=== PATIENT | female | born 1960 | race Caucasian/White ===

== ENCOUNTER 2017-01-03 12:31 | Emergency (ER) | payer OTHER ==
[~2017-01-03] VITALS: Ht 177.8 cm; Wt 97.7 kg
[~2017-01-03 12:31] MED LIST: VIC5 PO
[2017-01-03 12:40] VITALS: BP 151/89; PULSE 77; RESP 16; O2SAT 99
[2017-01-03] MEDS ORDERED: TdaP Vaccine 0.5 mL Inj IM ONE (12:50)
--- NOTE | 2017-01-03 13:03 | ED.REPORT ---
HPI-Extremity Problem Upper Date of Service Jan 03, 2017 ED Provider: Coleman Sainz DO Pt is a healthy 56 y/o female presenting to the ED due to left index finger laceration which occurred prior to arrival. The patient was using a loin trimmer and accidentally nicked her finger. She c/o mild numbness about the fingertip. Pt denies any other sites of injury. Nursing Notes Stated Complaint: SEVERE FINGER LAC Chief Complaint: Extremity Trauma Nursing Notes Reviewed: Yes Allergies: Coded Allergies: No Known Allergies (Verified Allergy, Severe, 01/03/17) Scheduled Hydrocod/APAP-Expunged, Do Not Renew! (Vicodin-Expunged Drug, Do Not Renew) 1 Tab Tab 1 TAB PO PRN Take 1-2 tabs every 4-6 hours if needed for pain General Time Seen by MD: 13:02 Chief Complaint Finger injury left 2 Hx Obtained From: Patient Arrived By: Walk-in Onset Occurred: Just prior to arrival Symptom Duration: Since onset Location: : Finger left 2 Quality: Painful Severity: Current: Moderate Severity: Maximum: Moderate Recent Healthcare: No recent doctor visit, No recent hospitalization Similar Sx Previous: No Past Medical History Past Medical History Denies Past Surgical History Cholecystectomy 2012 Breast reduction 1996 Smoking History Never Smoker Social History Alcohol Use: "Social" Ambulatory Status Independent Review of Systems Constitutional: Denies: Chills Musculoskeletal: Reports: Extremity pain, Extremity swelling Neurologic: Reports: Numbness, Denies: Focal weakness Complete sys rev & neg: except as marked. Respiratory: Denies: Pleuritic pain Cardiovascular: Denies: Chest pain GI: Denies: Abdominal pain Female: Denies: Flank pain Physical Exam Initial Vital Signs Initial VS: Reviewed, Vital signs normal Head / Eyes: Atraumatic, Normocephalic, PERRL ENT: Mucous membranes moist, Conjunctiva normal, No scleral icterus Neck: Supple, Full range of motion Respiratory: No respiratory distress Cardiovascular: Intact distal pulses Lower Extremities: Vascular intact, Neuro intact, No swelling Skin: Warm, Dry, No cyanosis Neurologic: Alert, Oriented, Nonfocal Psychiatric: Mood/affect normal, Behavior normal, Normal thought content General/Constitutional: Awake, Alert, No acute distress, Cooperative, Not toxic appearing Appearance / Presentation: Positive: Uncomfortable Wrist / Hand: Full range of motion, Vascular intact Left index finger: 2 lacerations to distal phalanx. More proximal one 1.5 cm over the finger pad. Distal to that is 3 cm and circumferential and goes through the base of the nail matrix. Distal sensation intact but somewhat diminished Interpretation & Diagnostics X-Ray Interpretation Xray Interpretation: IMPRESSION: Complex comminuted open fracture of the distal left second phalanx. Dictated by: Ryan Lin M.D. on 01/03/2017 at 13:19 Approved by: Ryan Lin M.D. on 01/03/2017 at 13:20 Study Performed: Fingers X-Ray Ordered: Hand left Interpretation / Wet Read by: Interpret - Radiologist Procedures Laceration Management Laceration Management: Performed by JOÃO Del Valle Time: 13:30 Procedure Performed by: Allied health pract Consent / Setup / Site Prep: Informed consent provided, Consent from patient , Hand hygiene observed, Stand sterile technique Location of Wound: left index finger, multiple lacerations Wound Length: 3 cm Local Anesthesia: Lidocaine 1% Digital Block: Yes Digit Involved: Index finger left Wound Preparation: Normal saline Debridement: None Irrigation: Copious, 250 cc Repair Skin: ___ O (5.), Nylon # Sutures - Skin: 3 Closure Layers: 1 Suture Technique: Simple Post-Procedure / Complications: Antibiotic oint applied, Dressing applied, No complications, Condition improved, Tolerated procedure well, Patient stable Re-Eval/Medical Decision Med Decision/Clinical Course 56 year old female presents to the ER for repair of finger tip laceration which occured while using a loin trimmer for the first time earlier today. Patient has flexion and extension of finger at dip joint. patient also has nail bed laceration at base of nail. X-ray indicates multiple fractures. Discussed with Dr. Agrawal. Will see patient this week in clinic. He wants the wound washed, Tdap updated, oral keflex and wound loosely approximated and splinted. All completed. Patient with good pain control with digital block. Provided home meds of keflex and percocet 5/325 #20. No sign of compartment syndrome or tendon damage at this time. Re-Evaluation/Progress : Time of Eval: 14:00 Re-Evaluation/Progress Note: Pt rechecked. Informed pt of plan for treatment. Pt understands and agrees with plan for treatment. F/U instructions and RTER warnings given. All questions addressed. Consultation : Referral / Consult Name: Mikhail Agrawal MD Counseled Regarding: Diagnosis, Need for follow-up, When/why to return to ED Discharge & Departure Impression: Primary Impression: Fracture, finger, distal phalanx, open Encounter type: initial encounter Finger: index finger Fracture alignment: nondisplaced Laterality: left Qualified Code: S62.661B - Nondisplaced fracture of distal phalanx of left index finger, initial encounter for open fracture Additional Impressions: Finger laceration Encounter type: initial encounter Qualified Code: S61.219A - Laceration without foreign body of unspecified finger without damage to nail, initial encounter Nail bed injury Disposition: Home Discharge Condition All VS Reviewed: Yes Condition: Stable Patient Instructions: Finger Fracture (ED), Finger Laceration (ED) Additional Instructions: The x-ray indicates multiple fractures. I have spoken with Dr. Agrawal. The wound has been extensively washed, you are updated on your tdap and the lacerations have been loosely approximated. Please call Dr. Agrawal for an appointment this week. Start keflex 500 mg 4 times a day for 10 days. Use percocet 1 to 2 every 4 to 6 hours as needed for pain. Keep the dressing and the splint on till you are seen in ortho. Please call tomorrow and state seen in the ER and I spoke with Dr. Agrawal and you need to be seen this week. I am sorry this happened. You can purchase a cast protector at any drug store to keep the dressing dry. Referrals: Ganga Mendez MD (PCP) Mikhail Agrawal MD EDSupervising Provider for APC: Coleman Sainz Attestation Portions of this note were transcribed by Jeremias Monet. I, Dr. Sainz, personally performed the history, physical exam and medical decision-making; I reviewed and confirmed the accuracy of the information in the transcribed note. Signed by Annika Blood, 01/03/17 - 0967 copies to: Ganga Mendez MD; Mikhail Agrawal MD, Timothy S DO Jan 03, 2017 13:03 JEREMIAS MONET Jan 03, 2017 13:12 Lin Maxwell Jan 03, 2017 14:05 Signed by Annika Blood, 01/03/17 - 2177 copies to: Ganga Mendez MD; Mikhail Agrawal MD, Timothy S DO Jan 03, 2017 13:03 JEREMIAS MONET Jan 03, 2017 13:12 Lin Maxwell Jan 03, 2017 14:05
--- NOTE | 2017-01-03 13:28 | DRSVH ---
PROCEDURE: X-RAY FINGERS, TWO VIEWS INDICATIONS: laceration TECHNIQUE: AP hand, 2 views of the second finger(s) acquired. COMPARISON: None. FINDINGS: Bones: Complex comminuted open fracture of the distal left second phalanx with displaced bony fragme nts extending toward a palmar laceration. No definite involvement of the DIP joint.. Soft tissues: No suspicious soft tissue calcifications. IMPRESSION: Complex comminuted open fracture of the distal left second phalanx. Dictated by: Ryan Lin M.D. on 01/03/2017 at 13:19 Approved by: Ryan Lin M.D. on 01/03/2017 at 13:20
[2017-01-03] MEDS ORDERED: oxyCODONE-Acetamin 5-325 mg Tablet PO ONE (14:10)
[2017-01-03 14:35] VITALS: BP 143/78; PULSE 65; O2SAT 100
== END 2017-01-03 14:44 | disposition home or self-care (01) ==
LOC: SED 12:31
DX: S62.661B Nondisplaced fracture of distal phalanx of left index finger, initial encounter for open fracture (principal); S61.211A Laceration without foreign body of left index finger without damage to nail, initial encounter; W29.3XXA Contact with powered garden and outdoor hand tools and machinery, initial encounter; Y93.89 Activity, other specified; Y92.89 Other specified places as the place of occurrence of the external cause; Y99.8 Other external cause status; Z23 Encounter for immunization

== ENCOUNTER → 2017-03-30 | Day surgery (SDC) | payer OTHER ==
[~2017-03-30] VITALS: Ht 177.8 cm; Wt 100.2 kg
[~2017-03-30] MED LIST changes: +Atropine 0.4 mg/mL Inj IVPUSH PRN; +CITA20TA11 PO; +CeFAZolin Inj 2 GM in IV Premix 1 EACH IV ONE; +Dexamethasone 4 mg/mL Inj ONE; +EPHEDrine Sulfate 50 mg/mL Inj IVPUSH PRN; +HYDROmorphone 1 mg/mL Inj IVPUSH PRN; +Labetalol 5 mg/mL 20 mL Inj IV PRN; +Lactated Ringer's 1,000 ML IV SCH; +Lactated Ringer's 500 ML IV PRN; +MULT-1018 PO; +MetoCLOpramide 5 mg/mL 2 mL Inj IVPUSH PRN; +MetoCLOpramide 5 mg/mL 2 mL Inj ONE; +OMEG500C PO; +Ondansetron 2 mg/mL 2 mL Inj IVPUSH PRN; +Ondansetron 2 mg/mL 2 mL Inj ONE; +Phenylephrine 10,000 mCg/mL Inj IVPUSH PRN; +Phenylephrine/NS 100 mCg/mL 10 mL Syringe IVPUSH ONE; +Propofol 10,000 mCg/mL 20 mL Inj ONE; -VIC5 PO; +fentaNYL-PF 50 mCg/mL 2 mL Inj IVPUSH PRN; +fentaNYL-PF 50 mCg/mL 2 mL Inj ONE; +levothyroxine PO
[2017-03-30 06:40] VITALS: BP 127/66; RESP 12; O2SAT 98
[2017-03-30] MEDS: Lactated Ringer's 1,000 ML IV SCH ×2 (07:13→08:06)
--- NOTE | 2017-03-30 08:32 | PCM.HPANE ---
Patient Data Surgeon Admitting Provider: Attending Provider:Jaya Serrano DO Primary Care Physician:Ganga Mendez MD Other Provider:Alex Sharp Anesthesia Reason for Visit Left Index Finger Distal Phalanx Delayed Union Ht/WT & BMI Height (Feet): 5 Height (Inches): 10.00 Weight (Kilograms): 100.200 Body Mass Index 31.00 Allergies Coded Allergies: No Known Allergies (Verified Allergy, Severe, 03/24/17) Past Anesthesia History Anesthesia History: Denies:: Abnormal Airway, Anesthesia Reactions, Difficult Intubation, Fam Anesthesia Reaction, Fam Malignant Hypertherm, Malignant Hyperthermia Diabetes History Hx Diabetes?: No MRSA MRSA: No Medications Home Meds Incl Beta Leif: No Reported Medications [place]-3 Fatty Acids (Fish Oil)500 Mg Capsule.dr500 Mg PO 03/24/17 Multivitamin (Multi Vitamin Daily)1 Each Tablet1 Each PO DAILY 30 Days Ref 0 03/24/17 [levothyroxine] No Conflict CheckUnknown Dose PO DAILY 03/24/17 Citalopram 20 Mg [id number] Mg PO DAILY Ref 0 03/24/17 Discontinued Reported Medications [place]-3 Fatty Acids (Fish Oil)500 Mg Capsule.dr500 Mg PO DAILY 03/24/17 Multivitamin (Multivitamins)1 Each Capsule1 Each PO DAILY 03/24/17 Citalopram 20 Mg [id number] Mg PO DAILY Ref 0 03/24/17 Hydrocod/APAP-Expunged, Do Not Renew! (Vicodin-Expunged Drug, Do Not Renew)1 Tab Tab1 Tab PO PRN Take 1-2 tabs every 4-6 hours if needed for pain 01/01/10 History History of ENT Problems?: No HEENT History: Denies:: Abnormal Airway Cataracts Difficult Intubation Dysphagia Glaucoma Hearing Problem Sinus Problem TMJ Denture Type: None Teeth Condition: Within Normal Limits Hx of Heart Problems?: No Cardiovascular History: Denies:: AICD Abdominal Aortic Aneurism Atrial Fibrillation Cardiac Surgery Chest Pain Congestive Heart Failure Coronary Artery Disease Edema Heart Murmur Hypertension Irregular Heartbeat Pacemaker Peripheral Vascular Rheumatic Fever Thrombophlebitis Valvular Heart Disease Hx of Respiratory Problem?: No Respiratory History: Denies:: Asthma COPD Chest Surgery Cough Dyspnea Emphysema Hemoptysis Oxygen Administration Pneumonia Pulmonary Embolism Tuberculosis Use of C-PAP Machine Use of Inhalers / NEBS Hx Neurologic Problems?: No Neurological History: Denies:: Alzheimer's Disease CVA Dementia Dizziness Headaches Multiple Sclerosis Parkinson's Disease Seizures TIA Hx of GI Problems?: No Gastrointestinal History: Denies:: Cirrhosis Diverticulitis Gall Bladder Disease Gastroesphageal Reflux Gastrointestinal Bleeding Heartburn Hepatitis Hiatal Hernia Liver Disease Rectal Bleeding Hx of Problems?: No Genitourinary History: Denies:: HX of Hemodialysis Kidney Stones Urinary Tract Infection HX of Peritoneal Dialysis: No Female Hx: Positive for:: Problems with Breasts? (Breast reduction 1996) Denies:: Currently Endometriosis Pelvic Inflammatory Skin History: Denies:: History Skin Disorders? Pressure Ulcers Hx Musculoskeletal Problems?: Yes Musculoskeletal History: Positive for:: Musculoskeletal Trauma (left finger laceration) Osteoarthritis Denies:: Back Injury Degenerative Joint Fibromyalgia Joint Replacement Myasthenia Gravis Rheumatoid Arthritis Systemic Lupus Hx of Psycho/Social Problems?: No Psycho Social History: Denies:: Anxiety Bipolar Disorder Hx Depression Suicide Attempt Hx Surgeries?: Yes (breeast reduction, Marilyn, Rt. shoulder surgery) Other History: Positive for:: Thyroid Disease Denies:: Cancer Endocrine Disease Hospitalization History Blood Transfusions: Positive for:: Accept Blood Products? Denies:: Blood Transfuse Reaction Blood Transfusions Hx Diabetes: No Hx Alcohol Use: YesAlcoholic Drinks Per Day: 2-3 drinks a weekHx Substance Use : No Smoking Status: Never Smoker Stop/Bang S-Snoring: Do You Snore Loudly: No T-Tired: feel tired, fatigued: No O-Obsered: Observed not breath: No P-Blood Pressure: treated: No B- Body Mass Index > 35 kg/m2: Yes A- Age over 50: Yes N- Neck Large Circumference: No G- Gender Male: No ARCADIO Total Score: 2 Risk Assessment Category Category 1A: Patient has history of documented sleep apnea, and HAS NOT received any narcotic, sedative or anesthesia administration during this stay. Category 1B: Patient has history of documented sleep apnea, and HAS received any narcotic , sedative or anesthesia administration during this stay Category 2: Patient has SUSPECTED Obstructive Sleep Apnea, and HAS received any narcotic , sedative or anesthesia administration during this stay. Category 3: Patient has SUSPECTED Obstructive Sleep Apnea and HAS NOT received narcotic, sedative or anesthesia administration during this stay. Category 4: Outpatient in Procedural Areas with known sleep apnea or who screen positive for High Risk via the STOP/BANG questionnaire. Exam Exam Vital Signs Vital Signs Date Time Temp Pulse Resp B/P Pulse Ox O2 Delivery O2 Flow Rate FiO2 03/30/17 06:40 36.7 12 127/66 98 Room Air General Appearance: Alert, Oriented X3, Cooperative, No Acute Distress HEENT/AIRWAY: MP 2, Neck Movement, Mouth Opening (3 FBMO) Lungs: Clear to Auscultation, Normal Air Movement Heart: Exam Unremarkable, Regular Rate/Rhythm, No Murmurs/Rubs/Gallops Meds/Labs/Diagnostics Admission Meds Current Medications Lactated Ringer's (Lr) 1,000 ml @ 120 mls/hr Q8H20M IV Last administered on t 07:13; Start 03/30/17 at 05:00; Stop 03/30/17 at 13:19 Plan Impression Patient chart reviewed, patient interviewed and anesthestic plan with risks, benefits, and alternatives discussed, and informed consent obtained. NPO per Anesth. Guidelines: Yes ASA Physical Status: ASA2 Mod Systemic Disease Anesthetic Plan: GA Bene/Risks/Altern/Consents: Yes HP Complete Prior to Induction: Yes Carlton Zamora MD Mar 30, 2017 07:40
[2017-03-30 09:40] VITALS: BP 106/54; PULSE 70; RESP 16; O2SAT 99
[2017-03-30 09:45] VITALS: BP 125/66; PULSE 69; RESP 16; O2SAT 99
[2017-03-30 09:50] VITALS: BP 126/66; PULSE 67; RESP 13; O2SAT 96
[2017-03-30 10:05] VITALS: BP 131/65; PULSE 67; RESP 14; O2SAT 95
[2017-03-30 10:26] VITALS: BP 135/72; PULSE 86; RESP 16; O2SAT 96
[2017-03-30] MEDS: HYDROcodone-APAP 5-325 mg Tablet PO PRN ×2 (10:27→10:56)
--- NOTE | 2017-03-30 16:19 | PCM.ANEP1 ---
Post Anesthesia PACU Phase 1 Assessment Vital Signs Vital Signs Date Time Temp Pulse Resp B/P Pulse Ox O2 Delivery O2 Flow Rate FiO2 03/30/17 10:26 86 16 135/72 96 Room Air 03/30/17 10:05 67 14 131/65 95 Room Air 03/30/17 09:50 67 13 126/66 96 Room Air 03/30/17 09:45 69 16 125/66 99 Simple Mask 10 03/30/17 09:40 36.4 70 16 106/54 99 Simple Mask 10 Anesthetic Administered: GA Level of Alertness: Awake, talking TANNER's with Equal Strength: Yes Pain: No Nausea or Vomiting: No CV Function & Hydration Stable: Yes Airway Device: n/a Oxygen Delivery: Room Air Lungs: Clear to Auscultation, Normal Air Movement Dermatome Level: Full Sensation PACU Phase 2 Assessment Complications: No Follow up Care: N/A Patient Instructions Provided: N/A Carlton Zamora MD Mar 30, 2017 16:19
--- NOTE | 2017-03-31 02:49 | OP ---
[address] [address] OPERATIVE REPORT PATIENT: EDI HUGHES : 1960 MR#: [id number] ADMIT: 03/30/2017 JOB ID: [id number] DATE OF SURGERY: 03/30/2017 PREOPERATIVE DIAGNOSIS(ES): 1. Left index finger distal phalanx delayed union. 2. Left nail bed laceration. POSTOPERATIVE DIAGNOSIS(ES): 1. Left index finger distal phalanx delayed union. 2. Left nail bed laceration. PROCEDURES: 1. Left index finger distal phalanx open reduction, internal fixation with applications of distal radius autograft. 2. Removal of nail plate and limited debridement of nail bed. SURGEON: Jaya Serrano DO ANESTHESIA: General. BRIEF HISTORY: The patient is a pleasant 57-year-old female that presented with a saw injury to her left index finger. This was three months prior when she presented to an outlying facility and was eventually followed up and treated conservatively with splinting by Mikhail Agrawal MD. She subsequently developed very limited healing at the mid waist of the distal phalanx with a slight ridge transversely in the appearance of her nail, as well as the nail bed. There was a gap between the old nail and the new nail with exposed underlying nail bed that appeared scarred with failure of complete consolidation of the phalanx and the nail bed deformity. I discussed with the patient the risks, benefits, alternatives and indications to proceed either with continued conservative treatment versus proceeding with open reduction, internal fixation utilizing distal radius autograft and the possibility of also nail bed repair after removing the nail plate fragment and evaluating the nail bed. The patient understood the risks include, but are not limited to, neurovascular injury, tendon injury, infection, failure of fixation, stiffness, persistent pain, nail bed and nail plate deformity, and nail plate growth arrest, all of which may require further intervention. Patient had all questions answered. Consent was signed and placed in chart. PROCEDURE IN DETAIL: The patient was brought to the operative suite and placed supine on the operating table. Surgical time-out was performed. Everyone in the room was in agreement. After appropriate anesthesia was obtained, a left upper arm tourniquet was applied, and the left upper extremity was prepped and draped in sterile fashion. Left upper extremity was then exsanguinated and tourniquet inflated to 250 mmHg. The nail plate was freed up from the eponychium, as well as the underlying nail bed, and removed. This consisted of mainly the proximal half of the nail plate. There was distal half of the nail plate that was also undermined from the nail bed and removed. There was a central portion of the nail bed transversely that was left uncovered. There was a significant amount of scar tissue overlying the area that was debrided, revealing excellent underlying sterile matrix. The previous laceration appeared well healed, and with the scar removed the underlying nail bed was found to be completely healed. Copious irrigation was then performed. The Xeroform was then interposed between the nail folds. Attention was then turned toward the exposure of the distal phalanx delayed union. A longitudinal incision was made to the distal phalanx volarly. Dissection was carried down to the periosteum and the flexor digitorum profundus tendon. The periosteum and flexor digitorum profundus tendon was split longitudinally at the midline and elevated revealing the delayed union site. Fibrous tissue was then debrided from the fracture site utilizing a series of curettes, as well as rongeurs. Next, two 0.035 inch K-wires were advanced in a retrograde fashion across the fracture site. They were placed in parallel fashion. Position of the K-wires were verified under fluoroscopy. The K-wires were advanced to the base of the distal phalanx and did not cross the distal phalangeal joint. This left a deficit at the delayed union site which was bone grafted utilizing distal radius autograft. The autograft was obtained with a longitudinal incision dorsally just proximal to Anibal's tubercle. A K-wire was advanced to the site of planned distal radius harvest. Position was verified under fluoroscopy. The K-wire was then further utilized to make multiple perforations to the dorsal cortex just proximal to Anibal's tubercle and cortical window then further created with a series of osteotomes. Curette was then used to obtain cancellous autograft, which was further impacted in a 1 cc syringe. Impacted distal radius autograft was then placed through the delayed union site and tamped into place with a blunt end of a 0.062 inch and a 0.035 inch K-wire. Multiple views under fluoroscopy were utilized to verify anatomic reduction and appropriate filling of the defect with the autograft. The periosteum and the split in the flexor digitorum profundus was then closed utilizing 5-0 Vicryl. Skin was then closed with 5-0 nylon to the index finger pulp, as well as for the dorsal aspect of the distal radius where the autograft site was performed. The patient had the pin cut just underneath the skin of the pulp. Patient was then placed into a bulky dressing with a tip protector incorporated, immobilizing the DIP joint of the index finger. ESTIMATED BLOOD LOSS: Less than 1 cc. COMPLICATIONS: None. DISPOSITION: The patient tolerated the procedure well. Anesthesia was reversed and patient was transferred to PACU for recovery. POSTOPERATIVE PLAN: The patient will follow up in the office in two weeks. I will then have the sutures removed and have her start working on scar mobilization. The distal interphalangeal joint and the distal phalanx will be further immobilized until there is some increased consolidation prior to initiating range of motion to the index finger and distal interphalangeal joint. It will likely be approximately eight weeks prior to removal of the buried pin in the office. This all again depends on how much consolidation is appreciated and at what time interval. ANDREW
== END | disposition home or self-care (01) ==
LOC: SAS 06:15
PROVIDERS: ATTEND Orthopaedic Surgery
DX: S62.631G Displaced fracture of distal phalanx of left index finger, subsequent encounter for fracture with delayed healing (principal); S61.311D Laceration without foreign body of left index finger with damage to nail, subsequent encounter; M19.90 Unspecified osteoarthritis, unspecified site; W31.89XD Contact with other specified machinery, subsequent encounter; Y93.89 Activity, other specified; Y92.017 Garden or yard in single-family (private) house as the place of occurrence of the external cause; Y99.8 Other external cause status
CPT/HCPCS: 11750; 26765; 76000; J0690; J1100; J1885; J2370; J2405; J2704; J2765; J3010; J7120